=== PATIENT | female | born 1955 | race Caucasian/White ===

== ENCOUNTER → 2017-01-11 | Outpatient (CLI) | payer BC ==
--- NOTE | 2017-01-13 10:29 | Diagnostic Imaging Report ---
PROCEDURE: MRI right joint lower extremity without contrast. TECHNIQUE: Multiplanar, multisequence non contrast-enhanced MRI of the right lower extremity was accomplished. INDICATION: Ankle and foot pain after injury. FINDINGS: The alignment of the ankle is normal. There is some diffuse marrow edema in the distal aspect of the tibia extending into the medial malleolus. There appears to be a slightly irregular fracture line parallel to the plafonds suspect for occult fracture. This is nondisplaced. The talar dome is intact. The distal fibula is intact. The anterior tibial, posterior tibial and peroneal tendons are intact. The Achilles tendon is unremarkable. Plantar fascia is grossly unremarkable. There is questionable disruption of the anterior talofibular ligament with some minimal overlying marrow edema. The deltoid ligament appears to remain intact. There are no discrete fluid collections or masses. There is some edema in the calcaneus. There are nondisplaced vertical and oblique fractures through the posterior calcaneus. IMPRESSION: Nondisplaced subchondral fracture of the distal tibia with diffuse marrow edema. Two discrete fracture lines in the posterior aspect of the calcaneus, one vertical and the other oblique with surrounding marrow edema. Both of these are also suspect for occult nondisplaced fracture. Questionable disruption of the anterior talofibular ligament. Recommend clinical correlation. Dictated by: Dictated on workstation # [id number]
--- NOTE | 2017-01-13 10:34 | Diagnostic Imaging Report ---
PROCEDURE: MRI right lower extremity without contrast. TECHNIQUE: Multiplanar, multisequence non contrast-enhanced MRI of the right lower extremity was accomplished. INDICATION: Foot pain after stepping into a hole. FINDINGS: There are 2 discrete fracture lines in the posterior aspect of the calcaneus. Note is also made of a nondisplaced subchondral fracture of the distal tibia. There is some diffuse marrow edema in the medial cuneiform which also appears to have some focal fracture lines within it which are nondisplaced. There is no other fracture or dislocation in the foot. IMPRESSION: Nondisplaced fractures of the distal tibia and calcaneus as previously described. Additionally, there are nondisplaced fracture lines in the medial cuneiform with diffuse edema throughout. Dictated by: Dictated on workstation # [id number]
== END ==
LOC: RAD 10:54
PROVIDERS: ATTEND Family Medicine
DX: S82.301A Unspecified fracture of lower end of right tibia, initial encounter for closed fracture (principal); S92.011A Displaced fracture of body of right calcaneus, initial encounter for closed fracture; S92.241A Displaced fracture of medial cuneiform of right foot, initial encounter for closed fracture; X58.XXXA Exposure to other specified factors, initial encounter; Y99.8 Other external cause status
CPT/HCPCS: 73721

== ENCOUNTER → 2019-07-27 | Outpatient (CLI) | payer BC ==
--- NOTE | 2019-07-27 14:10 | Diagnostic Imaging Report ---
INDICATION: Prior history of hip replacements. Patient has right thigh pain. TECHNIQUE: Patient was administered 25.4 mCi technetium 99m MDP intravenously and dynamic blood flow, blood pool and delayed imaging over the bilateral thighs was performed. FINDINGS: Symmetric blood flow bilaterally is noted. Blood pool activity appears to be symmetric. Delayed images demonstrate subtle mild uptake at the level of the mid shafts of the femora bilaterally. This is likely along the inferior aspect of the patient's prosthesis. No other suspicious foci are seen in the lower extremities. There is abnormal uptake involving the anterior right lower ribs, indeterminate. IMPRESSION: Essentially unremarkable three-phase bone scan apart from moderate delayed activity involving lower anterior right ribs. This could be on a posttraumatic basis and correlation to a recent injury to the lower right ribs is recommended. No significant abnormality of bilateral thighs is identified. No findings to suggest infection are identified. Dictated by: Dictated on workstation # [id number]
== END ==
LOC: CARD 09:36
PROVIDERS: ATTEND Family Medicine
DX: M79.651 Pain in right thigh (principal); Z96.643 Presence of artificial hip joint, bilateral
CPT/HCPCS: 78315

== ENCOUNTER 2020-06-22 05:30 | Outpatient (RCR) | payer MEDICARE ==
[~2020-06-22] VITALS: Ht 167.7 cm; Wt 59.1 kg
[~2020-06-22 05:30] MED LIST: LOSA25TA41 PO; SIMV40TA25 PO
[2020-06-23] MEDS ORDERED: ACHD5005 PO (09:51)
== END 2020-09-19 | disposition home or self-care (01) ==
LOC: PREOP 05:30
PROVIDERS: ATTEND Podiatrist Foot & Ankle Surgery
DX: Z01.818 Encounter for other preprocedural examination (principal)

== ENCOUNTER 2020-06-23 07:55 | Day surgery (SDC) | payer MEDICARE ==
[2020-06-23] VITALS (7 sets, daily range): BP systolic 123–154; BP diastolic 77–89
[~2020-06-23] VITALS: Ht 167 cm; Wt 59.1 kg
[2020-06-23] MEDS ORDERED: ceFAZolin INJECTION 1,000 MG in WATER (STERILE) FOR INJECTION 10 ML IV ONE (08:15)
[2020-06-23] MEDS ORDERED: LACTATED RINGERS 1,000 ML IV PRN (08:15)
--- NOTE | 2020-06-23 08:20 | Progress Note-Pre Operative ---
Pre-Operative Progress Note H&P Reviewed The H&P was reviewed, patient examined and no changes noted. Date Seen by Provider: Jun 23, 2020 Time Seen by Provider: 08:19 Date H&P Reviewed: Jun 23, 2020 Time H&P Reviewed: 08:19 Pre-Operative Diagnosis: Hammertoe, left 5th TESS,JOSE ALFREDO Q DPM Jun 23, 2020 08:20
[2020-06-23] MEDS ORDERED: CATHETER FLUSH 10 ML SYR IV PRN (08:30)
[2020-06-23] MEDS ORDERED: PROPOFOL INJECTION 50 ML IV ONE (08:34)
[2020-06-23] MEDS ORDERED: fentaNYL INJ 100 MCG/2 ML AMP ONE (08:34)
[2020-06-23] MEDS ORDERED: ONDANSETRON 4 MG/2 ML (SDV) Z0FRAN ONE (08:34)
[2020-06-23] MEDS ORDERED: MIDAZOLAM 2 MG/2 ML (VERSED) VIAL ONE (08:35)
[2020-06-23] MEDS ORDERED: LIDOCAINE 1% INJ 20 ML 20 ML VIAL ONE (08:44)
[2020-06-23] MEDS ORDERED: BUPIVACAINE 0.5% 30 ML (SENSORCAINE) VIAL ONE (08:44)
--- NOTE | 2020-06-23 09:48 | Progress Note-Post Operative ---
Post-Operative Progess Note Surgeon (s)/Roofing Apprentice (s) Surgeon JOSE ALFREDO PULIDO DPM Roofing Apprentice: None Pre-Operative Diagnosis Hammertoe, left 5th Post-Operative Diagnosis Same Procedure & Operative Findings Date of Procedure 06/23/20 Procedure Performed/Findings Arthroplasty left 5th toe Anesthesia Type MAC Estimated Blood Loss Estimated blood loss (mL): Minimal Specimens/Packing Specimens Removed Bone, left 5th toe JOSE ALFREDO PULIDO DPM Jun 23, 2020 09:48
[2020-06-23] MEDS ORDERED: ACHD5005 PO (09:51)
[2020-06-23] MEDS ORDERED: LACTATED RINGERS 1,000 ML IV SCH (10:00)
[2020-06-23] MEDS ORDERED: HYDROcodone/APAP 5 MG/325 MG (LORTAB) TAB PO PRN (10:00)
--- NOTE | 2020-06-23 11:03 | Diagnostic Imaging Report ---
INDICATION: Postop surgery for hammertoe of 5th digit. AP and lateral views of the left foot are obtained. There is no prior study for comparison. There is no acute fracture or acute bony abnormality. There is widening of the interphalangeal joint of the 5th digit which is probably postsurgical in nature. There are diffuse degenerative findings throughout the interphalangeal joints and 1st MTP joint. There is plantar calcaneal sprain. There are prominent calcifications at the Achilles insertion. There is degenerative change throughout the tarsal bones. IMPRESSION: Chronic degenerative findings as described above. No acute fracture. Widening of the 5th interphalangeal joint which is compatible with postsurgical change. Dictated by: Dictated on workstation # [id number]
--- NOTE | 2020-06-23 16:30 | OPERATIVE REPORT ---
DATE OF SERVICE: 06/23/2020 SURGEON: Nery Pulido DPM. PREOPERATIVE DIAGNOSIS: Hammer digit syndrome, left fifth toe. POSTOPERATIVE DIAGNOSIS: Hammer digit syndrome, left fifth toe. PROCEDURE: Arthroplasty, left fifth toe. WOUND CLASS: Clean. ANESTHESIA: Monitored anesthesia care. HEMOSTASIS: Pneumatic ankle tourniquet at 250 mmHg. INDICATIONS: This 65-year-old female presents complaining of a painful left fifth toe. Conservative therapy is met with unsatisfactory results and the patient is agreeable to surgical intervention after risks and complications were discussed at length. No guarantees were extended to the patient and she is willing to proceed. DESCRIPTION OF PROCEDURE: The patient was brought back to the operating table, placed in secure supine position. Appropriate timeout was performed. A pneumatic ankle tourniquet was placed over the left lower extremity over several layers of padding. Utilizing aseptic technique, the left fifth ray was anesthetized utilizing a 1:1 mixture of 1% Xylocaine, 0.5% Marcaine injected in a reverse Pavon block as well as a digital block to the left fifth toe. This was done with 10 mL of the 1:1 mixture. The left foot was then prepped and draped in normal sterile manner. The left foot was then elevated and allowed to exsanguinate after which the tourniquet was inflated to 250 mmHg. Attention was then directed to the dorsal lateral aspect of the left fifth toe where a hyperkeratotic lesion was identified. This area was circumscribed with two curvilinear incisions beginning at a distal medial to proximal lateral orientation overlying the proximal interphalangeal joint. The circumscribed skin was removed in toto with the intention of allowing for derotation of the toe upon closure. Dissection was carried out with blunt and sharp dissection down to the subcutaneous tissue and down to the extensor digitorum longus tendon, which was transected just proximal to the proximal interphalangeal joint, the medial and lateral collateral ligaments were also released. This exposed the hypertrophic head of the proximal phalanx. The head of the proximal phalanx was then removed utilizing a power sagittal saw. This removed the bony prominence and allowed for mobility of the distal portion of the digit. The wound was flushed with copious amounts of normal saline. Closure was then performed in layers. Deep closure was performed with 3-0 Vicryl, superficial with 4-0 Vicryl and skin closure with 4-0 Prolene in a simple interrupted type stitch. Due to the orientation of the incision, there is reduction of the adductor varus contracture of the digit. The bony prominence was no longer palpable to the dorsal lateral eminence and the hyperkeratotic lesion was also removed with the skin plasty. Postoperative dressing consisted of Betadine soaked Adaptic, sterile 4 x 4, sterile Kerlix all secured with a Coban wrap. The patient tolerated the anesthesia and procedure well and was transported from the operating room to the recovery area with vital signs stable and vascular status intact to the left fifth toe. She was given a prescription for hydrocodone and instructions to be icing, elevating and resting. We will see him in the office in 10 days for followup or sooner if necessary. Job ID: [id number] DocumentID: [id number] Dictated Date: 06/23/2020 10:37:18 Steamer Operator Date: 06/23/2020 16:29:28 Dictated By: NERY PULIDO DPM
== END 2020-06-23 11:00 | disposition home or self-care (01) ==
LOC: SDC 07:55
PROVIDERS: ATTEND Podiatrist Foot & Ankle Surgery
DX: M20.42 Other hammer toe(s) (acquired), left foot (principal); I10 Essential (primary) hypertension; M19.90 Unspecified osteoarthritis, unspecified site; Z79.899 Other long term (current) drug therapy
CPT/HCPCS: 73620; 87081; 88305; 88311

== ENCOUNTER → 2023-03-10 | Outpatient (CLI) | payer MEDICARE ==
[~2023-03-10] VITALS: Ht 167 cm; Wt 59.1 kg
[~2023-03-10] MED LIST changes: +ACHD5005 PO; +AMLO1ORA PO
== END | disposition home or self-care (01) ==
LOC: PREOP 09:35
PROVIDERS: ATTEND Specialist
DX: Z01.818 Encounter for other preprocedural examination (principal)

== ENCOUNTER 2023-03-14 11:10 | Day surgery (SDC) | payer MEDICARE ==
[~2023-03-14] VITALS: Ht 167 cm; Wt 59.1 kg
[2023-03-14] MEDS ORDERED: MIDAZOLAM INJ 2 MG/2 ML VIAL ONE (11:40)
[2023-03-14] MEDS ORDERED: POVIDONE IODINE OPHTH SOLN 5% 30 ML OP ONE (11:45)
[2023-03-14] MEDS ORDERED: LIDOCAINE PF 1% 2 ML VIAL IR PRN (11:45)
[2023-03-14] MEDS: TETRACAINE 0.5% OPHTH SOLN 5 ML BTL OU PRN ×4 (11:45→12:03)
[2023-03-14] MEDS ORDERED: MOXIFLOXACIN OPHTH SOLN 5 MG/ML 0.5 ML SYRINGE OP ONE (11:45)
[2023-03-14] MEDS ORDERED: TIMOLOL 0.5% (CATARACTS) 0.3 ML BTL OU PRN (11:45)
[2023-03-14 11:50] VITALS: BP 132/80
[2023-03-14] MEDS: PHENYLEPHRINE 10% OPHTH SOLN 5 ML BTL OU SCH ×3 (11:51→12:03)
[2023-03-14] MEDS: TROPICAMIDE 1% OPH SOLN (MYDRIACYL) 15 ML BTL OP SCH ×3 (11:51→12:04)
--- NOTE | 2023-03-14 12:11 | Ophthalmologist Pre-Op Note ---
Pre-Operative Progress Note H&P Reviewed The H&P was reviewed, patient examined and no changes noted. Date H&P Reviewed: Mar 14, 2023 Time H&P Reviewed: 12:11 Pre-Op Dx Cataract, Left Eye JOVI KIRBY MD Mar 14, 2023 12:11
--- NOTE | 2023-03-14 12:33 | Ophthalmology Operative Report ---
Cataract removal/placement IOL PREOPERATIVE DIAGNOSIS: Cataract Left Eye POSTOPERATIVE DIAGNOSIS: Cataract Left Eye PROCEDURE: Cataract removal and placement of posterior chamber implant, left eye SURGEON: Cortez Kirby ANESTHESIA: Topical with sedation COMPLICATIONS: None ESTIMATED BLOOD LOSS: Minimal DESCRIPTION OF PROCEDURE: After proper informed consent was obtained, the patient, a 67 female, was taken to the Operating Room and the left eye was anesthetized with tetracaine. The left eye was then prepped and draped in the usual manner. A wire lid speculum was placed. A paracentesis was made at the left hand position. Preservative free lidocaine was injected into the anterior chamber followed by viscoelastic. A clear corneal incision was made in the temporal position. A capsulorrhexis was preformed and the central nuclear and cortical material were removed. The posterior capsule was polished and an Kenny 16.5 CNA0T0 was placed into the capsular bag. The residual viscoelastic was aspirated and balanced saline solution was injected into the anterior chamber. Moxifloxacin was injected into the anterior chamber. The wound was checked and found to be water tight. The patient tolerated the procedure well without complications. CORTEZ KIRBY MD Mar 14, 2023 12:32
[2023-03-14 12:40] VITALS: BP 132/80
--- NOTE | 2023-03-14 12:50 | Anesthesia-General Post-Op ---
MAC Patient Condition Mental Status/LOC: Same as Preop Cardiovascular: Satisfactory Nausea/Vomiting: Absent Respiratory: Satisfactory Pain: Controlled Complications: Absent Post Op Complications Complications None Follow Up Care/Instructions Patient Instructions None needed. Anesthesiology Discharge Order Discharge Order Patient is doing well, no complaints, stable vital signs, no apparent adverse anesthesia problems. No complications reported per nursing. LESLEY RIVAS CRNA Mar 14, 2023 12:50
== END 2023-03-14 12:42 | disposition home or self-care (01) ==
LOC: SDC 11:10
PROVIDERS: ATTEND Specialist
DX: H25.9 Unspecified age-related cataract (principal)
CPT/HCPCS: 66984; V2632